=== PATIENT | male | born 1930 | race Caucasian/White ===

== ENCOUNTER 2016-08-14 07:42 | Emergency (ER) | payer MEDICARE, BC ==
[~2016-08-14 07:42] MED LIST: CELEXA20 MG PO; DEXILANT60 MG PO; FLONASE16 GM NASBOTH; FLUOCINONIDE-E60 GM TOP; GLUCOSAMINE CH1 EAC1 PO; LOPRESSOR25 MG PO; MEN'S ONE DAIL1 EACH PO; PLAVIX75 MG PO; PRILOSEC20 MG PO; REQUIP3 MG PO; ZOCOR10 MG PO
[2016-08-14] MEDS ORDERED: REQUIP0.5 MG PO (10:07)
[2016-08-14] MEDS ORDERED: CERTAVITE SR-AN1 TAB PO (10:10)
[2016-08-14] MEDS ORDERED: CITRUCEL POWDE850 GM PO (10:12)
[2016-08-14] MEDS ORDERED: VITAMIN D3400 UNI2 PO (10:12)
== END 2016-08-14 09:24 | disposition short-term general hospital (02) ==
LOC: ER 07:42
DX: R04.0 Epistaxis (principal); G20 Parkinson's disease; I35.9 Nonrheumatic aortic valve disorder, unspecified
CPT/HCPCS: A9150

== ENCOUNTER → 2016-11-02 | Outpatient (CLI) | payer MEDICARE, BC ==
[~2016-11-02] MED LIST changes: +CERTAVITE SR-AN1 TAB PO; +CITRUCEL POWDE850 GM PO; +REQUIP0.5 MG PO; +VITAMIN D3400 UNI2 PO
== END | disposition short-term general hospital (02) ==
LOC: CLCARD 10:50
DX: I25.10 Atherosclerotic heart disease of native coronary artery without angina pectoris (principal); I35.0 Nonrheumatic aortic (valve) stenosis; I10 Essential (primary) hypertension; G20 Parkinson's disease; Z95.1 Presence of aortocoronary bypass graft; Z95.2 Presence of prosthetic heart valve